=== PATIENT | female | born 1940 | race Caucasian/White ===

== ENCOUNTER 2018-08-12 21:18 | Inpatient (IN) | payer OTHER ==
--- NOTE | 2018-08-12 21:50 | PDOC ---
History of Present Illness - General Stated Complaint: Jaundice Time Seen by Provider: 08/12/18 21:50 - History of Present Illness Initial Comments: 08/12/18 21:50 Ms. Colin is a 78 yo female w/ pmh of afib on coumadin, HTN, HLD, COPD, paranoid schizophrenia, peripheral neuropathy, osteoarthritis, peptic ulcer, and esophagitis who presents for evaluation of elevated T-bili noted on labs at [facility]. Patient also reported to be yellow. No other complaints or symptoms at this time. The patient denies chest pain, shortness of breath, headache and dizziness. Denies fever, chills, nausea, vomit, diarrhea and constipation. Denies dysuria, frequency, urgency and hematuria. Past History - Past Medical History Allergies/Adverse Reactions: Allergies Allergy/AdvReac Type Severity Reaction Status Date / Time No Known Allergies Allergy Verified 04/23/13 06:46 Home Medications: Ambulatory Orders Acetaminophen [Tylenol Regular Strength -] 650 mg PO Q6H PRN 04/22/13 Albuterol So4/Ipratropium [Combivent] 14.7 gm IH QID PRN 04/22/13 Dextran 70/Hypromellose [Tears Naturale-II Eye Drops] 15 ml OP BID 04/22/13 Docusate Sodium [Colace -] 100 mg PO DAILY 04/22/13 Mag Hydrox/Al Hydrox/Simeth [Maalox Suspension] 30 ml PO TID PRN 04/22/13 Metoclopramide HCl [Reglan] 5 mg PO ASDIR 04/22/13 Olanzapine [Zyprexa] 20 mg PO HS 04/22/13 Ranitidine HCl [Zantac] 150 mg PO HS 04/22/13 Simvastatin [Zocor] 20 mg PO HS 04/22/13 Acetaminophen [Tylenol .Regular Strength -] 650 mg PO Q6H PRN #0 tablet Albuterol Sulfate Inhaler - [Ventolin HFA Inhaler -] 2 inh IH QID #0 inh Atorvastatin Ca [Lipitor] 10 mg PO HS #0 tablet 05/05/13 Docusate Sodium [Colace -] 100 mg PO DAILY #0 capsule 05/05/13 Hypromellose 0.5% Opth Soln [Artificial Tears] 2 drop OU QID #0 drops 05/05/13 Mag Hydrox/Al Hydrox/Simeth [MAALOX *SUSPENSION* -] 30 ml PO Q8H PRN #1 oral.susp 05/05/13 Metoclopramide HCl [Reglan] 5 mg PO ASDIR #0 tablet 05/05/13 Pantoprazole Sodium [Protonix IV] 40 mg PO DAILY #0 vial 05/05/13 Cardiac Disorders: Yes (a fib) COPD: Yes GI Disorders: Yes (PUD) HTN: Yes Hypercholesterolemia: Yes - Suicide/Smoking/Psychosocial Hx Smoking Status: No Smoking History: Never smoked Number of Cigarettes Smoked Daily: 0 Review of Systems - Review of Systems Comments:: 08/12/18 21:50 GENERAL/CONSTITUTIONAL: No fever or chills. No weakness. HEAD, EYES, EARS, NOSE AND THROAT: No change in vision. No ear pain or discharge. No sore throat. CARDIOVASCULAR: No chest pain or shortness of breath RESPIRATORY: No cough, wheezing, or hemoptysis. GASTROINTESTINAL: No nausea, vomiting, diarrhea or constipation. GENITOURINARY: No dysuria, frequency, or change in urination. MUSCULOSKELETAL: No joint or muscle swelling or pain. No neck or back pain. SKIN: +Yellow skin tone as described. NEUROLOGIC: No headache, vertigo, loss of consciousness, or change in strength/ sensation. ENDOCRINE: No increased thirst. No abnormal weight change HEMATOLOGIC/LYMPHATIC: No anemia, easy bleeding, or history of blood clots. ALLERGIC/IMMUNOLOGIC: No hives or skin allergy. *Physical Exam - Physical Exam Comments: 08/12/18 21:50 GENERAL: Awake, alert, and fully oriented, in no acute distress HEAD: No signs of trauma, normocephalic, atraumatic EYES: +Mildly icteric sclera. PERRLA, EOMI, conjunctiva clear ENT: Auricles normal inspection, hearing grossly normal, nares patent, oropharynx clear without exudates. Moist mucosa NECK: Normal ROM, supple, no lymphadenopathy, JVD, or masses LUNGS: No distress, speaks full sentences, clear to auscultation bilaterally HEART: Regular rate and rhythm, normal S1 and S2, no murmurs, rubs or gallops, peripheral pulses normal and equal bilaterally. ABDOMEN: Soft, nontender, normoactive bowel sounds. No guarding, no rebound. No masses EXTREMITIES: Normal inspection, Normal range of motion, no edema. No clubbing or cyanosis. NEUROLOGICAL: Cranial nerves II through XII grossly intact. Normal speech, normal gait, no focal sensorimotor deficits SKIN: +Patient yellow appearing. Warm, Dry, normal turgor, no rashes or lesions noted. ED Treatment Course - LABORATORY CBC & Chemistry Diagram: 08/12/18 22:20 08/12/18 22:20 Medical Decision Making - Medical Decision Making 08/13/18 02:51 Ms. Colin is a 78 yo female w/ pmh as described who presents for evaluation of elevated t-bili as noted on routine labs. Patient also noted to be jaundiced. Patient evaluated using labs as below which confirmed elevated t-bili. Patient evaluated with US and CT which revealed dilation of biliary tree and common duct , dilation of pancreatic duct, obstructing source not identified. Also cholelithiasis and rectal fecal impaction without large or small bowel obstruction. Will admit patient to hospitalist for further GI follow-up and investigation of current symptoms. Laboratory Results - last 24 hr 08/12/18 08/12/18 08/12/18 22:20 22:20 22:20 WBC 9.5 RBC 4.32 Hgb 12.9 Hct 37.1 D MCV 86.0 MCH 29.9 MCHC 34.7 RDW 16.4 H Plt Count 639 H D MPV 9.1 D Absolute Neuts (auto) 3.7 Neutrophils % 38.7 L D Neutrophils % (Manual) 68.0 Band Neutrophils % 0.0 Lymphocytes % 52.6 H D Lymphocytes % (Manual) 20.0 Monocytes % 4.9 Monocytes % (Manual) 5 Eosinophils % 3.5 Eosinophils % (Manual) 5.0 H Basophils % 0.3 Basophils % (Manual) 0.0 Nucleated RBC % 0 Platelet Estimate Increased PT with INR 33.90 H INR 2.84 H PTT (Actin FS) 48.9 H Sodium 135 L Potassium 4.3 Chloride 100 Carbon Dioxide 25 Anion Gap 10 BUN 21 H Creatinine 1.0 Creat Clearance w eGFR 53.76 Random Glucose 149 H Calcium 9.2 Total Bilirubin 7.5 H AST 255 H ALT 216 H Alkaline Phosphatase 937 H Total Protein 5.9 L Albumin 2.7 L Blood Type Antibody Screen 08/12/18 22:20 WBC RBC Hgb Hct MCV MCH MCHC RDW Plt Count MPV Absolute Neuts (auto) Neutrophils % Neutrophils % (Manual) Band Neutrophils % Lymphocytes % Lymphocytes % (Manual) Monocytes % Monocytes % (Manual) Eosinophils % Eosinophils % (Manual) Basophils % Basophils % (Manual) Nucleated RBC % Platelet Estimate PT with INR INR PTT (Actin FS) Sodium Potassium Chloride Carbon Dioxide Anion Gap BUN Creatinine Creat Clearance w eGFR Random Glucose Calcium Total Bilirubin AST ALT Alkaline Phosphatase Total Protein Albumin Blood Type B POSITIVE Antibody Screen Negative *DC/Admit/Observation/Transfer Diagnosis at time of Disposition: Elevated bilirubin, Jaundice - Discharge Dispostion Condition at time of disposition: Fair Decision to Admit order: Yes - Referrals Referrals: Lisa Sanchez MD [Primary Care Provider] - - Patient Instructions - Post Discharge Activity
[2018-08-12 22:08] VITALS: BMI 20.9
[2018-08-12 22:45] LABS: BASO % 0.3 % (0-2.0); EOS % 3.5 % (0-4.5); HEMATOCRIT 37.1 % (32.4-45.2); HEMOGLOBIN 12.9 GM/dL (10.7-15.3); LYMPH % 52.6 % (8-40); MCH 29.9 pg (25.7-33.7); MCHC 34.7 g/dl (32.0-36.0); MEAN PLT VOLUME 9.1 fl (7.5-11.1); MONO % 4.9 % (3.8-10.2); NEUT % 38.7 % (42.8-82.8); PLATELET COUNT 639 K/MM3 (134-434); RBC 4.32 M/mm3 (3.60-5.2); RDW 16.4 % (11.6-15.6); WHITE BLOOD COUNT 9.5 K/mm3 (4.0-10.0)
[2018-08-12 22:46] LABS: INR 2.84 (0.83-1.09); PROTHROMBIN TIME (PATIENT) 33.9 SEC (9.7-13.0)
[2018-08-12 22:48] LABS: ACTIVATED PTT 48.9 SECONDS (25.2-36.5)
[2018-08-12 23:21] LABS: PLATELET ESTIMATE INCREASED
--- NOTE | 2018-08-12 23:35 | PDOC ---
Attending Attestation - Resident Resident Name: Oswaldo Corley - ED Attending Attestation I have performed the following: I have examined & evaluated the patient, The case was reviewed & discussed with the resident, I agree w/resident's findings & plan, Exceptions are as noted - HPI HPI: 08/12/18 23:33 The patient is a 78 year old female, with a significant past medical history of Afib (on coumadin), HTN, HLD, COPD, paranoid schizophrenia, peripheral neuropathy, osteoarthritis, peptic ulcer, and esophagitis, who presents [facility] the emergency department [facility] with abnormal LFTs and jaundice. Pt denies any acute complaints but unable to contribute any additional history due to dementia. [facility] reports that pt had labs that showed a Tbili of >6 today. Allergies: NKDA Primary Care Physician: Dr. Sanchez - Physicial Exam PE: 08/12/18 23:34 GENERAL: Awake, alert, and fully oriented, in no acute distress. HEAD: No signs of trauma EYES: + scleral icterus, PERRLA, EOMI, sclera anicteric ENT: Auricles normal inspection, hearing grossly normal, nares patent, oropharynx clear without exudates. Moist mucosa NECK: Nontender, no stepoffs, Normal ROM, supple, no lymphadenopathy, JVD, or masses LUNGS: Breath sounds equal, clear to auscultation bilaterally. No wheezes, and no crackles HEART: Regular rate and rhythm, normal S1 and S2, no murmurs, rubs or gallops ABDOMEN: Soft, nontender, normoactive bowel sounds. No guarding, no rebound. No masses EXTREMITIES: Normal range of motion, no edema. No clubbing or cyanosis. No cords, erythema, or tenderness NEUROLOGICAL: Cranial nerves II through XII intact. 5/5 strength and sensation in all extremities, Normal speech, normal gait, normal cerebellar function SKIN: +jaundice, Warm, Dry, normal turgor, no rashes or lesions noted. - Medical Decision Making 08/12/18 23:35 78 F with painless jaundice, bili >6 at [facility] today. Will obtain RUQ sono to r/o gallbladder pathology, as pt was seen to have gallstones on prior imaging. Also consider pancreatic head mass. - Labs - RUQ sono - Consider CT 08/13/18 01:43 RUQ US with dilated CBD, gallstones. No evidence of cholecystitis. CT obtained, shows dilated CBD and pancreatic duct. Atrophic pancreas. No obstructing source, though pancreatic head lesion cannot be excluded. Gallbladder packed with gallstones. Will admit for GI evaluation.
[2018-08-12 23:44] LABS: ALBUMIN 2.7 g/dl (3.4-5.0); ALK PHOS 937 U/L (45-117); ANION GAP 10 MMOL/L (8-16); BILIRUBIN,TOTAL 7.5 mg/dL (0.2-1); BLOOD UREA NITROGEN 21 mg/dL (7-18); CALCIUM 9.2 mg/dL (8.5-10.1); CHLORIDE 100 mmol/L (98-107); CO2 25 mmol/L (21-32); GLUCOSE,RANDOM 149 mg/dL (74-106); POTASSIUM 4.3 mmol/L (3.5-5.1); SGOT/AST 255 U/L (15-37); SGPT/ALT 216 U/L (13-61); SODIUM 135 mmol/L (136-145); TOT PROT 5.9 g/dl (6.4-8.2)
--- NOTE | 2018-08-13 03:28 | HP ---
Admitting History and Physical - Primary Care Physician PCP: Lisa Sanchez - Admission Chief Complaint: Elevated Bilirubin, Jaundice History of Present Illness: This is a 78 y/o woman from [facility] with a PMHx of: Afib (on Xarelto), HTN, HLD, COPD, Paranoid Schizophrenia, Peripheral Neuropathy, OA, PUD, Esophagitis, GIB. Who presents to the ED sent in for evaluation of abnormal lab values- elevated bilirubin and jaundice appearing. Patient has no complaints. She denies fever, chills, cough, dizziness, SOB, CP, palpitations, AP, N/V/D. Patient will be admitted for Cholelithiasis, Elevated Bilirubin, Acute Transaminitis Diagnostics: ABD US- Cholelithiasis, marked dilatation of the biliary tree, uncertain etiology CTAP- severe dilatation, biliary tree common duct, dilation of the pancreatic duct. Pancreas is atrophic. Obstructing source is not identifiable ? occult obstructing pancreatic head lesion should be considered. Labs as follows: T Bili 7.5, AST 255, ALT 216, Alk Phos 937, INR 2.84, History Source: Medical Record, Transfer Record Limitations to Obtaining History: Clinical Condition, Poor Historian - Past Medical History Cardiovascular: Yes: AFIB, HTN, Hyperlipdemia Gastrointestinal: Yes: GI Bleed, Peptic Ulcer Disease, Other (Esophagitis) Psych: Yes: Schizophrenia (Paranoid) Musculoskeletal: Yes: Osteoarthritis - Past Surgical History Additional Past Surgical History: IVC Filter Placement - Smoking History Smoking history: Never smoked Have you smoked in the past 12 months: No Aproximately how many cigarettes per day: 0 - Alcohol/Substance Use Hx Alcohol Use: No History of Substance Use: reports: None - Social History Usual Living Arrangement: Yes: Custodial ADL: Support Services History of Recent Travel: No Home Medications - Allergies Allergies/Adverse Reactions: Allergies Allergy/AdvReac Type Severity Reaction Status Date / Time No Known Allergies Allergy Verified 08/13/18 03:39 - Home Medications Home Medications: Ambulatory Orders Ascorbic Acid [Vitamin C -] 500 mg PO DAILY 08/13/18 Bacitracin - [Bacitracin Topical Ointment -] 1 applic TP DAILY 08/13/18 Ergocalciferol [Vitamin D2] 50,000 unit PO Q7D@1000 08/13/18 Fenofibrate Nanocrystallized [Tricor] 145 mg PO DAILY 08/13/18 Insulin Glargine,Hum.rec.anlog [Lantus Solostar] 12 units SQ DAILY 08/13/18 Insulin Lispro [Humalog] 100 unit SQ BID 08/13/18 Magnesium Hydroxide [Milk of Magnesia] 400 mg PO DAILY PRN 08/13/18 Metformin HCl [Glucophage] 1,000 mg PO BID 08/13/18 Multivitamins [Tab-A-Vit -] 1 tab PO DAILY 08/13/18 Ondansetron HCl [Zofran] 4 mg PO Q8H PRN 08/13/18 Ranitidine HCl [Zantac] 150 mg PO HS 08/13/18 Rivaroxaban [Xarelto -] 20 mg PO DAILY 08/13/18 Sennosides [Senna] 17.2 mg PO HS 08/13/18 Sodium Phosphate/Na Biphos [Fleet Adult Rectal Enema] 133 ml RC ONCE PRN Umeclidinium [place] [Incruse Ellipta] 62.5 mcg IH DAILY 08/13/18 Family Disease History - Family Disease History Family History: Unable to Obtain Review of Systems Unable to obtain ROS, reason: Poor Historian Physical Examination Vital Signs: Vital Signs Temperature 98.4 F 08/12/18 21:18 Pulse Rate 99 H 08/12/18 21:18 Respiratory Rate 19 08/12/18 21:18 Blood Pressure 126/75 08/12/18 21:18 O2 Sat by Pulse Oximetry (%) 97 08/12/18 21:18 Constitutional: Yes: No Distress, Calm, Other (Jaundice) Eyes: Yes: EOM Intact, PERRL, Sclera Icterus HENT: Yes: WNL, Atraumatic, Normocephalic Neck: Yes: WNL, Supple, Trachea Midline Cardiovascular: Yes: WNL, Regular Rate and Rhythm, S1, S2 Respiratory: Yes: WNL, Regular, CTA Bilaterally Gastrointestinal: Yes: Soft, Hypoactive Bowel Sounds Renal/: Yes: Incontinence Breast(s): Yes: WNL Musculoskeletal: Yes: WNL Extremities: Yes: Other (RUE contractures) Edema: No Peripheral Pulses WNL: Yes Integumentary: Yes: Other (scratch rowley to left chest, b/l UE) Neurological: Yes: Alert, Cran Nerves II-XII Intact Psychiatric: Yes: Alert Labs: CBC, BMP 08/12/18 22:20 08/12/18 22:20 Laboratory Results - last 24 hr 08/12/18 08/12/18 08/12/18 22:20 22:20 22:20 WBC 9.5 RBC 4.32 Hgb 12.9 Hct 37.1 D MCV 86.0 MCH 29.9 MCHC 34.7 RDW 16.4 H Plt Count 639 H D MPV 9.1 D Absolute Neuts (auto) 3.7 Neutrophils % 38.7 L D Neutrophils % (Manual) 68.0 Band Neutrophils % 0.0 Lymphocytes % 52.6 H D Lymphocytes % (Manual) 20.0 Monocytes % 4.9 Monocytes % (Manual) 5 Eosinophils % 3.5 Eosinophils % (Manual) 5.0 H Basophils % 0.3 Basophils % (Manual) 0.0 Nucleated RBC % 0 Platelet Estimate Increased PT with INR 33.90 H INR 2.84 H PTT (Actin FS) 48.9 H Sodium 135 L Potassium 4.3 Chloride 100 Carbon Dioxide 25 Anion Gap 10 BUN 21 H Creatinine 1.0 Creat Clearance w eGFR 53.76 Random Glucose 149 H Calcium 9.2 Total Bilirubin 7.5 H AST 255 H ALT 216 H Alkaline Phosphatase 937 H Total Protein 5.9 L Albumin 2.7 L Blood Type Antibody Screen 08/12/18 22:20 WBC RBC Hgb Hct MCV MCH MCHC RDW Plt Count MPV Absolute Neuts (auto) Neutrophils % Neutrophils % (Manual) Band Neutrophils % Lymphocytes % Lymphocytes % (Manual) Monocytes % Monocytes % (Manual) Eosinophils % Eosinophils % (Manual) Basophils % Basophils % (Manual) Nucleated RBC % Platelet Estimate PT with INR INR PTT (Actin FS) Sodium Potassium Chloride Carbon Dioxide Anion Gap BUN Creatinine Creat Clearance w eGFR Random Glucose Calcium Total Bilirubin AST ALT Alkaline Phosphatase Total Protein Albumin Blood Type B POSITIVE Antibody Screen Negative Intake & Output 08/10/18 08/11/18 08/12/18 08/13/18 23:59 23:59 23:59 23:59 Weight 58.967 kg Imaging - Results Chest X-ray: Image Reviewed Cat Scan: Image Reviewed Ultrasound: Image Reviewed EKG: Image Reviewed (sinus tachycardia 103bpm, inferior infarct, cannot rule out anterior infarct, age undetermined) Problem List - Problems (1) Elevated bilirubin Assessment/Plan: US- Cholelithiasis, marked dilatation of the biliary tree, uncertain etiology CTAP-severe dilatation, biliary tree common duct, dilation of the pancreatic duct. Pancreas is atrophic. Obstructing source is not identifiable ? occult obstructing pancreatic head lesion should be considered. Appreciate GI consult Consider Surgical consult Would benefit with a MRCP, will defer to GI Monitor CBC, BMP, INR NPO Gentle IVF Code(s): R17 - UNSPECIFIED JAUNDICE (2) Transaminitis Assessment/Plan: See above Code(s): R74.0 - NONSPEC ELEV OF LEVELS OF TRANSAMNS & LACTIC ACID DEHYDRGNSE (3) Jaundice Assessment/Plan: Hepatitis Panel- pending Code(s): R17 - UNSPECIFIED JAUNDICE (4) Supratherapeutic INR Assessment/Plan: Likely secondary to Biliary Obstruction Hold Xarelto Consider Vitamin K Monitor INRs Code(s): R79.1 - ABNORMAL COAGULATION PROFILE (5) A-fib Assessment/Plan: EKG- sinus tachycardia inferior infarct age undetermined Continue home meds Code(s): I48.91 - UNSPECIFIED ATRIAL FIBRILLATION (6) HTN (hypertension) Assessment/Plan: stable Monitor BP Monitor renal function Continue home meds Code(s): I10 - ESSENTIAL (PRIMARY) HYPERTENSION (7) HLD (hyperlipidemia) Assessment/Plan: Hold Statin secondary to Transaminitis Code(s): E78.5 - HYPERLIPIDEMIA, UNSPECIFIED (8) COPD (chronic obstructive pulmonary disease) Assessment/Plan: Controlled On Breo Ellipta 62.5mcg per [place] records NF will change to Spiriva Duonebs prn Code(s): J44.9 - CHRONIC OBSTRUCTIVE PULMONARY DISEASE, UNSPECIFIED (9) Paranoid schizophrenia Code(s): F20.0 - PARANOID SCHIZOPHRENIA (10) Neuropathy Code(s): G62.9 - POLYNEUROPATHY, UNSPECIFIED (11) Osteoarthritis Assessment/Plan: stable Hold Tylenol 2/2 transaminitis Code(s): M19.90 - UNSPECIFIED OSTEOARTHRITIS, UNSPECIFIED SITE (12) PUD (peptic ulcer disease) Assessment/Plan: stable no active flare Code(s): K27.9 - PEPTIC ULC, SITE UNSP, UNSP AC OR CHR, W/O HEMOR OR PERF Assessment/Plan 78 y/o woman with a PMHx of: Afib (on Xarelto), HTN, HLD, COPD, Paranoid Schizophrenia, Peripheral Neuropathy, OA, PUD, Esophagitis, GI bleed. Admitted for Elevated Bilirubin, Acute Transaminitis for further evaluation of their emergent condition. Plan: See Problem List FEN D51/2NS@60ml/hr Replete lytes as indicated NPO DVT ppx SCDs Hold AC secondary to INR 2.48 Dispo: Requires Inpatient Care Visit type - Emergency Visit Emergency Visit: Yes ED Registration Date: 08/13/18 Care time: The patient presented to the Emergency Department on the above date and was hospitalized for further evaluation of their emergent condition. - New Patient This patient is new to me today: Yes Date on this admission: 08/13/18 - Critical Care Critical Care patient: No
[2018-08-13] MEDS ORDERED: DEXTROSE 5%-0.45% SALINE 1,000 ML IV SCH (05:45)
[2018-08-13 07:41] LABS: HEMATOCRIT 38.4 % (32.4-45.2); HEMOGLOBIN 12.3 GM/dL (10.7-15.3); MCH 28.1 pg (25.7-33.7); MEAN CELL VOLUME 87.7 fl (80-96); PLATELET COUNT 605 K/MM3 (134-434); RBC 4.37 M/mm3 (3.60-5.2); WHITE BLOOD COUNT 11.7 K/mm3 (4.0-10.0)
[2018-08-13 08:03] LABS: INR 2.22 (0.83-1.09); PROTHROMBIN TIME (PATIENT) 26.4 SEC (9.7-13.0)
[2018-08-13 08:20] LABS: ALBUMIN 2.7 g/dl (3.4-5.0); ALK PHOS 904 U/L (45-117); AMYLASE 28 U/L (25-115); ANION GAP 12 MMOL/L (8-16); BILIRUBIN,TOTAL 8.4 mg/dL (0.2-1); BLOOD UREA NITROGEN 22 mg/dL (7-18); CALCIUM 10.1 mg/dL (8.5-10.1); CHLORIDE 99 mmol/L (98-107); CO2 23 mmol/L (21-32); GLUCOSE,RANDOM 148 mg/dL (74-106); LIPASE 90 U/L (73-393); POTASSIUM 4.8 mmol/L (3.5-5.1); SGOT/AST 227 U/L (15-37); SGPT/ALT 200 U/L (13-61); SODIUM 134 mmol/L (136-145); TOT PROT 5.6 g/dl (6.4-8.2)
--- NOTE | 2018-08-13 10:00 | EKG ---
Test Reason : Blood Pressure : / mmHG Vent. Rate : 103 BPM Atrial Rate : 103 BPM P-R Int : 136 ms QRS Dur : 068 ms QT Int : 346 ms P-R-T Axes : 049 -59 050 degrees QTc Int : 453 ms SINUS TACHYCARDIA LEFT AXIS DEVIATION INFERIOR INFARCT (CITED ON OR BEFORE 23-APR-2013) CANNOT RULE OUT ANTERIOR INFARCT , AGE UNDETERMINED ABNORMAL ECG Confirmed by Kervin Narayanan MD ([id number]) on 08/13/2018 10:00:07 AM Referred By: Confirmed By:Kervin Narayanan MD
--- NOTE | 2018-08-13 11:44 | PN ---
Progress Note (short form) - Note Progress Note: Admitted from [facility] for elevated bilirubin, transaminitis Pt has no complaints of abdominal pain She was on PO antibiotics for UTI-- initially macrobid, then changed to Bactrim DS after obtaining urine culture results No nausea or vomiting pt has poor po intake which is chronic She has baseline dementia but can make her needs known bedbound Vital Signs - 24 hr 08/12/18 08/13/18 08/13/18 21:18 05:34 06:58 Temperature 98.4 F 98.0 F Pulse Rate 99 H Pulse Rate [ 97 H Right Radial] Respiratory 19 19 Rate Blood Pressure 126/75 Blood Pressure 106/69 [Left Arm] O2 Sat by Pulse 97 97 95 Oximetry (%) Current Medications Generic Name Dose Route Start Last Admin Trade Name Freq PRN Reason Stop Dose Admin Dextrose/Sodium Chloride 1,000 mls @ 42 mls/hr 08/13/18 05:45 08/13/18 07:00 D5-1/2ns - IV 42 mls/hr ASDIR IVONNE Administration Laboratory Results - last 24 hr 08/12/18 08/12/18 08/12/18 22:20 22:20 22:20 WBC 9.5 RBC 4.32 Hgb 12.9 Hct 37.1 D MCV 86.0 MCH 29.9 MCHC 34.7 RDW 16.4 H Plt Count 639 H D MPV 9.1 D Absolute Neuts (auto) 3.7 Neutrophils % 38.7 L D Neutrophils % (Manual) 68.0 Band Neutrophils % 0.0 Lymphocytes % 52.6 H D Lymphocytes % (Manual) 20.0 Monocytes % 4.9 Monocytes % (Manual) 5 Eosinophils % 3.5 Eosinophils % (Manual) 5.0 H Basophils % 0.3 Basophils % (Manual) 0.0 Nucleated RBC % 0 Platelet Estimate Increased PT with INR 33.90 H INR 2.84 H PTT (Actin FS) 48.9 H Sodium 135 L Potassium 4.3 Chloride 100 Carbon Dioxide 25 Anion Gap 10 BUN 21 H Creatinine 1.0 Creat Clearance w eGFR 53.76 Random Glucose 149 H Calcium 9.2 Total Bilirubin 7.5 H AST 255 H ALT 216 H Alkaline Phosphatase 937 H Total Protein 5.9 L Albumin 2.7 L Total Amylase Lipase Blood Type Antibody Screen 08/12/18 08/13/18 08/13/18 22:20 06:29 06:29 WBC 11.7 H RBC 4.37 Hgb 12.3 Hct 38.4 MCV 87.7 MCH 28.1 MCHC 32.0 RDW 17.0 H Plt Count 605 H MPV 9.0 Absolute Neuts (auto) Neutrophils % No Result Required. Neutrophils % (Manual) Band Neutrophils % Lymphocytes % No Result Required. Lymphocytes % (Manual) Monocytes % Monocytes % (Manual) Eosinophils % Eosinophils % (Manual) Basophils % Basophils % (Manual) Nucleated RBC % 0 Platelet Estimate PT with INR INR PTT (Actin FS) Sodium Potassium Chloride Carbon Dioxide Anion Gap BUN Creatinine Creat Clearance w eGFR Random Glucose Calcium Total Bilirubin AST ALT Alkaline Phosphatase Total Protein Albumin Total Amylase Lipase Blood Type B POSITIVE B POSITIVE Antibody Screen Negative 08/13/18 08/13/18 06:29 06:29 WBC RBC Hgb Hct MCV MCH MCHC RDW Plt Count MPV Absolute Neuts (auto) Neutrophils % Neutrophils % (Manual) Band Neutrophils % Lymphocytes % Lymphocytes % (Manual) Monocytes % Monocytes % (Manual) Eosinophils % Eosinophils % (Manual) Basophils % Basophils % (Manual) Nucleated RBC % Platelet Estimate PT with INR 26.40 H INR 2.22 H PTT (Actin FS) Sodium 134 L Potassium 4.8 Chloride 99 Carbon Dioxide 23 Anion Gap 12 BUN 22 H Creatinine 1.0 Creat Clearance w eGFR 53.76 Random Glucose 148 H Calcium 10.1 Total Bilirubin 8.4 H AST 227 H ALT 200 H Alkaline Phosphatase 904 H Total Protein 5.6 L Albumin 2.7 L Total Amylase 28 Lipase 90 Blood Type Antibody Screen AAOx2 Icteric S1 S2 RRR Lungs clear Abd- soft, obese, NT, ND, BS+ No edema hands deformed PLAN Looked through [facility] EMR notes- had normal LFT in April. Pt is assymptomatic Hold Xarelto in anticipation for any procedures Pt is on Xarelto for Parox Afib monitor LFT NPO keep on Iv fluids Hold off metformin , Tricor for MRCP spoke with [facility] nursing supervisor wall mirror department-- pt has no family-- she stated that the facility usually makes decisions Problem List - Problems (1) Dementia Code(s): F03.90 - UNSPECIFIED DEMENTIA WITHOUT BEHAVIORAL DISTURBANCE (2) A-fib Code(s): I48.91 - UNSPECIFIED ATRIAL FIBRILLATION (3) Elevated bilirubin Code(s): R17 - UNSPECIFIED JAUNDICE (4) HLD (hyperlipidemia) Code(s): E78.5 - HYPERLIPIDEMIA, UNSPECIFIED (5) HTN (hypertension) Code(s): I10 - ESSENTIAL (PRIMARY) HYPERTENSION (6) Jaundice Code(s): R17 - UNSPECIFIED JAUNDICE (7) Paranoid schizophrenia Code(s): F20.0 - PARANOID SCHIZOPHRENIA (8) Transaminitis Code(s): R74.0 - NONSPEC ELEV OF LEVELS OF TRANSAMNS & LACTIC ACID DEHYDRGNSE
[2018-08-13 12:30] LABS: ANISOCYTOSIS 2+; MACROCYTOSIS 0; PLATELET ESTIMATE NORMAL; TARGET CELLS 2+
--- NOTE | 2018-08-13 12:36 | CON.GI ---
Consult Consult Specialty:: GI Referred by:: Dr. Alfredo Sanchez Reason for Consultation:: Jaundice - History of Present Illness Chief Complaint: Patient denies any complaints. Transferred from [place] for evaluation of jaundice History of Present Illness: 78F transferred from [place] for evaluation of jaundice. She offers no complaints. She is oriented only to personm therefore history was obtained through the chart. She was previously admitted to [facility] in 04/2013 for abdominal pain and vomiting. At that time she had an unrevealing Abdominal US that failed to visualize the GB but a contrast CT scan revealed mildly diltaed central intrahepatic ducts, a non diltaed CBD and dense foci within the GB suggestive of stones. The pancreas described as unremarkable. She ultimately underwent HIDA that was positive. She was seen by Dr. Mathias however the patient refused cholecystectomy. 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 It appears as though she subsequently had an outpatient CT scan of the abdomen and pelvis 04/22 that revealed a markedly atrophic pancreas with calcifications at the head of the pancreas and dilated pancreatic duct, consistent with chronic calcific pancreatitis. Current CT scan revealed markedly dilated CBD, intrahepatics as well as pancreatic duct. I also clarified with Dr. Dumont re: anticoagulation. Ms. Colin is maintained on xarelto, not coumadin, given h/o DVT and PAF, and received a dose 5pm yesterday. Currently, MRI/MRCP was ordered, however, the patient is confused, has no family to sign an MRI checklist and per Dr. Dumont, Two physician consent is needed for consents. She also explained that her facility [facility] makes decisions for Ms. Colin - History Source History Provided By: Medical Record - Past Medical History DEPARTMENT HEAD: Yes: Dementia, Peripheral Neuropathy Cardio/Vascular: Yes: AFIB, HTN, Hyperlipdemia Pulmonary: Yes: COPD Gastrointestinal: Yes: GI Bleed, Peptic Ulcer Disease, Other (Esophagitis) Psych: Yes: Schizophrenia (Paranoid) Musculoskeletal: Yes: Osteoarthritis Endocrine: Yes: Other (osteoarthritis) - Past Surgical History Past Surgical History: Yes: Appendectomy Additional Surgical History: removal of mole on her left upper abdomen and flank - Alcohol/Substance Use Hx Alcohol Use: No History of Substance Use: reports: None - Smoking History Smoking history: Never smoked Have you smoked in the past 12 months: No Aproximately how many cigarettes per day: 0 - Social History Usual Living Arrangement: [facility] ADL: Support Services Place of : [facility] History of Recent Travel: No Home Medications - Allergies Allergies/Adverse Reactions: Allergies Allergy/AdvReac Type Severity Reaction Status Date / Time No Known Allergies Allergy Verified 08/13/18 03:39 - Home Medications Home Medications: Ambulatory Orders Ascorbic Acid [Vitamin C -] 500 mg PO DAILY 08/13/18 Bacitracin - [Bacitracin Topical Ointment -] 1 applic TP DAILY 08/13/18 Ergocalciferol [Vitamin D2] 50,000 unit PO Q7D@1000 08/13/18 Fenofibrate Nanocrystallized [Tricor] 145 mg PO DAILY 08/13/18 Insulin Glargine,Hum.rec.anlog [Lantus Solostar] 12 units SQ DAILY 08/13/18 Insulin Lispro [Humalog] 100 unit SQ BID 08/13/18 Magnesium Hydroxide [Milk of Magnesia] 400 mg PO DAILY PRN 08/13/18 Metformin HCl [Glucophage] 1,000 mg PO BID 08/13/18 Multivitamins [Tab-A-Vit -] 1 tab PO DAILY 08/13/18 Ondansetron HCl [Zofran] 4 mg PO Q8H PRN 08/13/18 Ranitidine HCl [Zantac] 150 mg PO HS 08/13/18 Rivaroxaban [Xarelto -] 20 mg PO DAILY 08/13/18 Sennosides [Senna] 17.2 mg PO HS 08/13/18 Sodium Phosphate/Na Biphos [Fleet Adult Rectal Enema] 133 ml RC ONCE PRN Umeclidinium [place] [Incruse Ellipta] 62.5 mcg IH DAILY 08/13/18 Family Disease History - Family Disease History Family History: Unable to Obtain Review of Systems - Review of Systems Constitutional: denies: Chills, Fever Cardiovascular: denies: Chest Pain Gastrointestinal: reports: Constipation (history of fecal retention, retained stool in rectum and sigmoid noted on admission CT scan. Per nurse she has a large soft BM today). denies: Abdominal Pain, Melena, Nausea, Rectal Bleeding, Vomiting Physical Exam-GI Vital Signs: Vital Signs Temperature 98.2 F 08/13/18 10:00 Pulse Rate 83 08/13/18 10:00 Respiratory Rate 18 08/13/18 10:00 Blood Pressure 132/65 08/13/18 10:00 O2 Sat by Pulse Oximetry (%) 95 08/13/18 06:58 Constitutional: Yes: Calm Eyes: Yes: Sclera Icterus Cardiovascular: Yes: Regular Rate and Rhythm. No: Murmur Respiratory: Yes: CTA Bilaterally Gastrointestinal Inspection: No: Distention, Hernia ...Auscultate: Yes: Normoactive Bowel Sounds ...Palpate: Yes: Soft. No: Hepatomegaly, Splenomegaly, Tenderness ...Percussion: No: Tympanitic Edema: No (No LE edema) Neurological: Yes: Alert, Oriented (x person only) Labs: CBC, BMP 08/13/18 06:29 08/13/18 06:29 INR, PTT INR 2.22 (0.83-1.09) H 08/13/18 06:29 Hepatic Panel Total Bilirubin 8.4 mg/dL (0.2-1) H 08/13/18 06:29 AST 227 U/L (15-37) H 08/13/18 06:29 ALT 200 U/L (13-61) H 08/13/18 06:29 Alkaline Phosphatase 904 U/L (45-117) H 08/13/18 06:29 Albumin 2.7 g/dl (3.4-5.0) L 08/13/18 06:29 Imaging - Results Cat Scan: Report Reviewed, Image Reviewed Ultrasound: Report Reviewed Problem List - Problems (1) Obstructive jaundice Assessment/Plan: Painless obstructive jaundice: The fact that it is painless with both biliary and pancreatic ductal dilatation , head of the pancreas malignancy would need to be kept higher in the differential. Given prior imaging studies revealing cholelithiasis, benign obstruction from choledocholithiasis not completely excluded. To the best of my abilities I explained the current clinical situation to Ms. Colin. I explained that to evaluate further and potentially treat her biliary obstruction , ERCP could be undertaken. We discussed potential risks of the procedure like but not limited to bleeding, perforation requiring surgery to repair, infection , sedation medication effects and pancreatitis, all of which could be potentially life threatening. After discussion, she said "well it seems that is like something that I should do". I am concerned regarding her insight into her medical condition and do not think she can give a true informed consent. Per Dr. Dumont, Frida has been giving consent for Ms. Colin as she does not have family / HCP or guardian. She believes that two physician consent would be needed for procedural consents. I spoke with Liz from risk management who , in turn, discussed the case with Dr. Mora. He explained that if Frida BARAKAT has been giving consent, they would likely need to given consent for prodcedures as well. I let Dr. Dumont be aware of this and am awaiting her feedback. In the interim: Hold Xarelto. Last dose 5pm last night. Needs to be held for 48 hours, particularly in the setting for need for possible sphincterotomy I dosed Vitamin K 10mg SC x 1 today. The elevated INR likely secondary to biliary obstruction Monitor LFTs, coag I started empiric Zosyn given uncertainly to the etiology of her biliary tract obstruction and rise in WBC. ID consult placed as well for Dr. Houston. Plan for possible ERCP wednesday 08/16, sooner if clinically indicated. I spoke with Dr. Nazario as well who will likely be performing the procedure. Code(s): K83.8 - OTHER SPECIFIED DISEASES OF BILIARY TRACT
[2018-08-13] MEDS ORDERED: PHYTONADIONE 10 MG/1 ML AMP SQ ONE (12:45)
[2018-08-13] MEDS ORDERED: PIPERACILLIN/TAZOBACTAM 3.375 GM VIAL IVPB ONE ×2 (13:14→17:09)
[2018-08-13] MEDS ORDERED: DEXTROSE 5%-WATER - 50 ML IVPB ONE ×2 (13:14→17:09)
[2018-08-13] MEDS ORDERED: PIPERACILLIN/TAZOB 3.375 GM 3.375 GM in DEXTROSE 5%-WATER - 50 ML IVPB SCH (13:15)
--- NOTE | 2018-08-13 13:57 | PN ---
Progress Note (short form) - Note Progress Note: ID consult dictated Jaundice with elevated LFTs ?obstructive elevated WBC concern for biliary sepsis plan blood cultures zosyn plan for MRI/MRCP Dementia Problem List - Problems (1) Jaundice Code(s): R17 - UNSPECIFIED JAUNDICE (2) Transaminitis Code(s): R74.0 - NONSPEC ELEV OF LEVELS OF TRANSAMNS & LACTIC ACID DEHYDRGNSE (3) Dementia Code(s): F03.90 - UNSPECIFIED DEMENTIA WITHOUT BEHAVIORAL DISTURBANCE
--- NOTE | 2018-08-13 14:48 | CONS ---
DATE OF CONSULTATION: DATE OF DICTATION: 08/13/2018 REQUESTING PHYSICIAN: Lisa Sanchez MD HISTORY OF PRESENT ILLNESS: This is a 78-year-old woman. She was sent from the halfway with jaundice. She apparently has a history of dementia and atrial fibrillation and she was found to have abnormal labs and sent to the ER. Of note, she has no family and the halfway is involved in making her decisions. She is quite demented and unable to follow simple commands. She has no complaints whatsoever of fevers, chills, nausea, vomiting or abdominal pain. In the emergency room she had an ultrasound of her abdomen that showed cholelithiasis and dilatation of the biliary tree. She had a CAT scan that showed again dilatation of the pancreatic duct as well as the common bile duct and she was found to have a total bilirubin of 7.5. She was admitted for further evaluation. PAST MEDICAL HISTORY: Notable for atrial fibrillation, hypertension, hyperlipidemia, COPD, paranoid schizophrenia, peripheral neuropathy, osteoarthritis, peptic ulcer disease, esophagitis and GI bleed. PAST SURGICAL HISTORY: Notable for IVC filter placement. She has a history of appendectomy as well. SOCIAL HISTORY: There is no history of cigarette or substance use. She lives alone at the halfway and she has no next of kin and there is no care proxy. ALLERGIES: She has no known drug allergies. MEDICATIONS AT THE SHELTER: Include insulin, TriCor, Ellipta inhalers, Zantac, multivitamins, vitamin D, Senna, Xarelto, vitamin C, Zofran p.r.n, metformin, Lantus insulin, and she was recently started on Bactrim DS for a week for UTI. REVIEW OF SYSTEMS: Unremarkable. FAMILY HISTORY: I cannot obtain a family history. PHYSICAL EXAMINATION: Vital Signs: Her temperature is 98.2, pulse is 83, blood pressure 132/65, respiratory rate is 18, saturating 95% on room air. General: She is a thin woman in no acute distress. She is markedly jaundiced. HEENT: She is normocephalic. Eyes anicteric. She will not open her mouth. Neck: Supple. Lungs: Clear to auscultation. Heart: Regular rate and rhythm. Abdomen: Soft, nontender. Extremities: Without edema. LABORATORY: White count is 11.7, hemoglobin 12.3, platelets of 605. INR is 2.2. BUN and creatinine are 20 to 11 with a total bilirubin of 8.4, AST of 227, ALT of 200, alkaline phosphatase of 904. Amylase and lipase are normal. IMAGING: Is as previously stated. She also had a chest x-ray that showed no active pulmonary disease. 1. In summary, this is an elderly woman with dementia from the halfway admitted with jaundice with elevated LFTs, possibly obstructive unclear whether this has benign or malignancy. She has an elevated white count. Would be concerned for biliary sepsis in this situation with plan for blood cultures and Zosyn. She has been scheduled for MRI and CT which will determine the further plan. 2. History of dementia. The patient is unable to make her own decisions. JAVED JUDGE M.D. [id number]
[2018-08-13] MEDS: PIPERACILLIN/TAZOB 3.375 GM 3.375 GM in DEXTROSE 5%-WATER - 50 ML IVPB SCH (17:23)
[2018-08-13 20:29] LABS: URINE APPEARANCE CLEAR; URINE COLOR AMBER; URINE GLUCOSE (UA) NEGATIVE (NEGATIVE); URINE KETONE NEGATIVE (NEGATIVE); URINE LEUK ESTERASE NEGATIVE (NEGATIVE); URINE NITRITE NEGATIVE (NEGATIVE); URINE PROTEIN 2+ (NEGATIVE)
[2018-08-13 20:41] LABS: CALCIUM OXALATE CRYSTALS RARE /hpf (NONE SEEN); EPI CELLS RARE /HPF (FEW); URINE BACTERIA RARE /hpf (NONE SEEN); URINE MUCUS RARE; YEAST RARE
[2018-08-14] MEDS ORDERED: DEXTROSE 5%-WATER - 50 ML IVPB ONE ×3 (01:58→17:12)
[2018-08-14] MEDS ORDERED: PIPERACILLIN/TAZOBACTAM 3.375 GM VIAL IVPB ONE ×3 (01:58→17:12)
[2018-08-14] MEDS: PIPERACILLIN/TAZOB 3.375 GM 3.375 GM in DEXTROSE 5%-WATER - 50 ML IVPB SCH ×3 (02:26→17:18)
[2018-08-14 07:49] LABS: HEMATOCRIT 34.1 % (32.4-45.2); HEMOGLOBIN 11.8 GM/dL (10.7-15.3); MCH 30.2 pg (25.7-33.7); MCHC 34.7 g/dl (32.0-36.0); MEAN CELL VOLUME 86.9 fl (80-96); MEAN PLT VOLUME 9.1 fl (7.5-11.1); PLATELET COUNT 538 K/MM3 (134-434); RBC 3.92 M/mm3 (3.60-5.2); RDW 17.5 % (11.6-15.6); WHITE BLOOD COUNT 8.6 K/mm3 (4.0-10.0)
[2018-08-14 08:06] LABS: SERUM IRON SATURATION 20 % (15-55); TOTAL IRON BINDING CAPACITY 357 ug/dL (250-450); UIBC 285 ug/dL (118-369)
[2018-08-14 08:14] LABS: INR 1.34 (0.83-1.09); PROTHROMBIN TIME (PATIENT) 15.9 SEC (9.7-13.0)
[2018-08-14 08:30] LABS: ALBUMIN 2.6 g/dl (3.4-5.0); ALK PHOS 850 U/L (45-117); ANION GAP 10 MMOL/L (8-16); BILIRUBIN,DIRECT 9.8 mg/dL (0.0-0.2); BILIRUBIN,TOTAL 11.8 mg/dL (0.2-1); BLOOD UREA NITROGEN 19 mg/dL (7-18); CALCIUM 9.5 mg/dL (8.5-10.1); CHLORIDE 100 mmol/L (98-107); CO2 23 mmol/L (21-32); GLUCOSE,RANDOM 140 mg/dL (74-106); POTASSIUM 4.3 mmol/L (3.5-5.1); SGOT/AST 240 U/L (15-37); SGPT/ALT 186 U/L (13-61); SODIUM 134 mmol/L (136-145); TOT PROT 5.4 g/dl (6.4-8.2)
--- NOTE | 2018-08-14 10:03 | PN ---
Progress Note (short form) - Note Progress Note: worsening jaundice no abdominal pain she is alert awaiting MRI results Vital Signs Period Temp Pulse Resp BP Sys/Higgins Pulse Ox Last 24 Hr 97.5 F-98.9 F 79-101 18-20 120-151/55-100 97 +scleral icterus, +jaundice cor-rrr lungs clear abd soft,nt ext no edema CBC, BMP 08/14/18 07:00 08/14/18 07:00 blood cultures pending MRI pending a/p Jaundice with elevated LFTs ?obstructive elevated WBC resolved on zosyn f/u MRI zosyn for now GI f/u ongoing Dementia Problem List - Problems (1) Jaundice Code(s): R17 - UNSPECIFIED JAUNDICE (2) Transaminitis Code(s): R74.0 - NONSPEC ELEV OF LEVELS OF TRANSAMNS & LACTIC ACID DEHYDRGNSE (3) Dementia Code(s): F03.90 - UNSPECIFIED DEMENTIA WITHOUT BEHAVIORAL DISTURBANCE
--- NOTE | 2018-08-14 11:01 | PN ---
Progress Note, Physician Chief Complaint: Jaundice History of Present Illness: Pt seen/examined at bedside, no complaints, oriented to person only. Denies abdominal pain, n/v, fever/chills. MRCP performed last night, awaiting results - Current Medication List Current Medications: Active Medications Dextrose/Sodium Chloride (D5-1/2ns -) 1,000 mls @ 42 mls/hr IV ASDIR IVONNE Last Admin: 08/13/18 07:00 Dose: 42 mls/hr Piperacillin Sod/Tazobactam (Sod 3.375 gm/ Dextrose) 50 mls @ 100 mls/hr IVPB Q8H-IV IVONNE; Protocol Last Admin: 08/14/18 09:35 Dose: 100 mls/hr - Objective Vital Signs: Vital Signs Temperature 97.5 F L 08/14/18 06:40 Pulse Rate 90 08/14/18 06:40 Respiratory Rate 18 08/14/18 06:40 Blood Pressure 141/74 08/14/18 06:40 O2 Sat by Pulse Oximetry (%) 97 08/13/18 21:00 Constitutional: Yes: Well Nourished, No Distress, Calm HENT: Yes: WNL, Atraumatic, Other (+scleral icterus) Cardiovascular: Yes: WNL, Regular Rate and Rhythm Respiratory: Yes: WNL, Regular, CTA Bilaterally Gastrointestinal: Yes: WNL, Normal Bowel Sounds, Soft, Other (Abd soft, nontender, nondistended) Labs: CBC, BMP 08/14/18 07:00 08/14/18 07:00 INR, PTT INR 1.34 (0.83-1.09) H 08/14/18 07:00 Problem List - Problems (1) Jaundice Assessment/Plan: 78yo female h/o dementia, A fib on xarelto presents from senior living with painless jaundice with elevated LFTs and CT imaging revealing gallstones, dilated IHD/CHD and PD with non dilated CBD. On Zosyn. No abdominal tenderness, fever or leucocytosis however T bili rising (8.4-->11.8, D bili 9.8). Still concerning for underlying malignancy with biliary and PD dilation however cannot exclude stones or stricture. INR 1.3. -Await MRI/MRCP results -Closely monitor LFT trend and wcc -Check CA 19-9 -Continue to hold xarelto -ERCP has been tentatively scheduled on 08/16/18 however d/w Dr. Nazario regarding possible more urgent intervention in setting of rising bili. -Will await clarification regarding consent from facility, [facility]. Otherwise if any change in clinical status including fever, abd pain, rising wcc , with concern for impending cholangitis, please notify GI for possible more emergent intervention (with likely 2PC consent). Attempted to call Dr. Dumont, and sent secure msg regarding above (await call back). Code(s): R17 - UNSPECIFIED JAUNDICE
--- NOTE | 2018-08-14 11:31 | PN ---
Progress Note (short form) - Note Progress Note: no distress wants to be left alone MRI done-- report pending No nausea or vomiting pt has poor po intake which is chronic She has baseline dementia but can make her needs known bedbound Vital Signs - 24 hr 08/13/18 08/13/18 08/13/18 14:48 14:52 14:58 Temperature 98.9 F 97.9 F Pulse Rate 83 81 Respiratory 18 18 18 Rate Blood Pressure 132/65 120/75 O2 Sat by Pulse Oximetry (%) 08/13/18 08/13/18 08/13/18 16:30 21:00 22:00 Temperature 97.7 F 97.9 F Pulse Rate 79 101 H Respiratory 18 20 Rate Blood Pressure 133/55 L 151/100 O2 Sat by Pulse 97 Oximetry (%) 08/14/18 06:40 Temperature 97.5 F L Pulse Rate 90 Respiratory 18 Rate Blood Pressure 141/74 O2 Sat by Pulse Oximetry (%) Current Medications Generic Name Dose Route Start Last Admin Trade Name Freq PRN Reason Stop Dose Admin Dextrose/Sodium Chloride 1,000 mls @ 42 mls/hr 08/13/18 05:45 08/13/18 07:00 D5-1/2ns - IV 42 mls/hr ASDIR IVONNE Administration Piperacillin Sod/Tazobactam 50 mls @ 100 mls/hr 08/13/18 18:00 08/14/18 09:35 Sod 3.375 gm/ Dextrose IVPB 100 mls/hr Q8H-IV IVONNE Administration Protocol Laboratory Results - last 24 hr 08/13/18 08/13/18 08/13/18 06:29 06:29 18:11 WBC RBC Hgb Hct MCV MCH MCHC RDW Plt Count MPV Neutrophils % Neutrophils % (Manual) 81.0 Band Neutrophils % 0.0 Lymphocytes % Lymphocytes % (Manual) 17.0 Monocytes % (Manual) 0 L D Eosinophils % (Manual) 2.0 Basophils % (Manual) 0.0 Myelocytes % (Man) 0 Promyelocytes % (Man) 0 Blast Cells % (Manual) 0 Nucleated RBC % Metamyelocytes 0 Hypochromia 0 Platelet Estimate Normal Polychromasia 0 Poikilocytosis 0 Anisocytosis 2+ Microcytosis 2+ Macrocytosis 0 Target Cells 2+ Stomatocytes 1+ PT with INR INR PTT (Actin FS) Sodium Potassium Chloride Carbon Dioxide Anion Gap BUN Creatinine Creat Clearance w eGFR POC Glucometer 184 Random Glucose Calcium Iron 72 TIBC 357 Iron Saturation 20 Total Bilirubin Direct Bilirubin AST ALT Alkaline Phosphatase Total Protein Albumin Urine Color Urine Appearance Urine pH Ur Specific [place] Urine Protein Urine Glucose (UA) Urine Ketones Urine Blood Urine Nitrite Urine Bilirubin Urine Urobilinogen Ur Leukocyte Esterase Urine WBC (Auto) Urine RBC (Auto) Ur Epithelial Cells Calcium Oxalate Crystal Urine Bacteria Urine Mucus Urine Yeast 08/13/18 08/14/18 08/14/18 18:43 07:00 07:00 WBC 8.6 RBC 3.92 Hgb 11.8 Hct 34.1 MCV 86.9 MCH 30.2 MCHC 34.7 RDW 17.5 H Plt Count 538 H MPV 9.1 Neutrophils % No Result Required. Neutrophils % (Manual) Band Neutrophils % Lymphocytes % No Result Required. Lymphocytes % (Manual) Monocytes % (Manual) Eosinophils % (Manual) Basophils % (Manual) Myelocytes % (Man) Promyelocytes % (Man) Blast Cells % (Manual) Nucleated RBC % 0 Metamyelocytes Hypochromia Platelet Estimate Polychromasia Poikilocytosis Anisocytosis Microcytosis Macrocytosis Target Cells Stomatocytes PT with INR 15.90 H INR 1.34 H PTT (Actin FS) Sodium Potassium Chloride Carbon Dioxide Anion Gap BUN Creatinine Creat Clearance w eGFR POC Glucometer Random Glucose Calcium Iron TIBC Iron Saturation Total Bilirubin Direct Bilirubin AST ALT Alkaline Phosphatase Total Protein Albumin Urine Color [place] Urine Appearance Clear Urine pH 5.0 Ur Specific [place] 1.059 H Urine Protein 2+ H Urine Glucose (UA) Negative Urine Ketones Negative Urine Blood 1+ H Urine Nitrite Negative Urine Bilirubin 4.0 Urine Urobilinogen 2.0 H Ur Leukocyte Esterase Negative Urine WBC (Auto) <1 Urine RBC (Auto) 122 Ur Epithelial Cells Rare Calcium Oxalate Crystal Rare Urine Bacteria Rare Urine Mucus Rare Urine Yeast Rare 08/14/18 08/14/18 07:00 07:00 WBC RBC Hgb Hct MCV MCH MCHC RDW Plt Count MPV Neutrophils % Neutrophils % (Manual) Band Neutrophils % Lymphocytes % Lymphocytes % (Manual) Monocytes % (Manual) Eosinophils % (Manual) Basophils % (Manual) Myelocytes % (Man) Promyelocytes % (Man) Blast Cells % (Manual) Nucleated RBC % Metamyelocytes Hypochromia Platelet Estimate Polychromasia Poikilocytosis Anisocytosis Microcytosis Macrocytosis Target Cells Stomatocytes PT with INR INR PTT (Actin FS) 36.4 Sodium 134 L Potassium 4.3 Chloride 100 Carbon Dioxide 23 Anion Gap 10 BUN 19 H Creatinine 1.0 Creat Clearance w eGFR 53.76 POC Glucometer Random Glucose 140 H Calcium 9.5 Iron TIBC Iron Saturation Total Bilirubin 11.8 H Direct Bilirubin 9.8 H AST 240 H ALT 186 H Alkaline Phosphatase 850 H Total Protein 5.4 L Albumin 2.6 L Urine Color Urine Appearance Urine pH Ur Specific [place] Urine Protein Urine Glucose (UA) Urine Ketones Urine Blood Urine Nitrite Urine Bilirubin Urine Urobilinogen Ur Leukocyte Esterase Urine WBC (Auto) Urine RBC (Auto) Ur Epithelial Cells Calcium Oxalate Crystal Urine Bacteria Urine Mucus Urine Yeast Icteric S1 S2 RRR Lungs clear Abd- soft, obese, NT, ND, BS+ No edema hands deformed PLAN Pt is assymptomatic Xarelto on hold MRI done for ERCP on Sunday spoke with Administration at [facility] - they have consented for MRI, will consent for any procedures I will have the nurse telephone information supervisor speak with Dr Nazario who will be doing ERCP palliative care eval Problem List - Problems (1) Dementia Code(s): F03.90 - UNSPECIFIED DEMENTIA WITHOUT BEHAVIORAL DISTURBANCE (2) A-fib Code(s): I48.91 - UNSPECIFIED ATRIAL FIBRILLATION (3) Elevated bilirubin Code(s): R17 - UNSPECIFIED JAUNDICE (4) HLD (hyperlipidemia) Code(s): E78.5 - HYPERLIPIDEMIA, UNSPECIFIED (5) HTN (hypertension) Code(s): I10 - ESSENTIAL (PRIMARY) HYPERTENSION (6) Jaundice Code(s): R17 - UNSPECIFIED JAUNDICE (7) Paranoid schizophrenia Code(s): F20.0 - PARANOID SCHIZOPHRENIA (8) Transaminitis Code(s): R74.0 - NONSPEC ELEV OF LEVELS OF TRANSAMNS & LACTIC ACID DEHYDRGNSE
[2018-08-14 12:54] LABS: ANISOCYTOSIS 2+; MACROCYTOSIS 0; PLATELET ESTIMATE INCREASED; TARGET CELLS 1+
[2018-08-14 20:39] VITALS: BP 118/57; PULSE 78; TEMP 98.4
[2018-08-15 04:20] LABS: HBSAG SCREEN Negative (Negative); HEP A AB, IGM Negative (Negative); HEP B CORE AB, TOT Negative (Negative)
[2018-08-15] MEDS ORDERED: TIOTROPIUM BROMIDE 2.5 MCG (SPIRIVA) RESPIMAT INHALER IH SCH (10:00)
== END 2018-08-15 00:45 | disposition short-term general hospital (02) | DRG 439 ==
LOC: JER 21:18 → JERBED 08-13 02:58 → J8W 08-13 08:21
PROVIDERS: ADMIT Internal Medicine; ATTEND Internal Medicine
DX: K86.89 Other specified diseases of pancreas (principal); R17 Unspecified jaundice; F20.0 Paranoid schizophrenia; K83.8 Other specified diseases of biliary tract; R74.0 Nonspecific elevation of levels of transaminase and lactic acid dehydrogenase [LDH]; R79.1 Abnormal coagulation profile; I10 Essential (primary) hypertension; J44.9 Chronic obstructive pulmonary disease, unspecified; G62.9 Polyneuropathy, unspecified; M19.90 Unspecified osteoarthritis, unspecified site; K27.9 Peptic ulcer, site unspecified, unspecified as acute or chronic, without hemorrhage or perforation; F03.90 Unspecified dementia, unspecified severity, without behavioral disturbance, psychotic disturbance, mood disturbance, and anxiety; E78.5 Hyperlipidemia, unspecified; I48.91 Unspecified atrial fibrillation
CPT/HCPCS: 36415; 71045-TC-FY; 74177-TC; 74183-TC; 76705-TC; 80048; 80053; 80076; 81003; 81015; 82150; 82172; 82962; 82977; 83010; 83540; 83550; 83690; 83883; 84460; 85025; 85610; 85730; 86704; 86706; 86708; 86850; 86900; 86901; 87040; 87086; 87340; 93005; 93010; 99282-25